=== PATIENT | female | born 1965 | race Caucasian/White ===

== ENCOUNTER 2019-04-04 17:47 | Emergency (ER) | payer OTHER ==
[2019-04-04 18:01] VITALS: TEMP 98.2
--- NOTE | 2019-04-04 18:55 | PDOC ---
History of Present Illness - General Chief Complaint: Weakness Stated Complaint: LEFT SIDE NUMBNESS Time Seen by Provider: 04/04/19 18:51 History Source: Patient Exam Limitations: No Limitations - History of Present Illness Initial Comments: Pt is a 54 yo F, with PMH of L breast lumpectomy (benign, 2014), who is presenting with complaints of LLE swelling and shooting pain from her LLE to her LUE since yesterday, associated with overall fatigue and frontal headache. Pt states starting yesterday ~5pm, she noticed swelling and heaviness in her L calf, followed by "shooting pain" from her L lateral calf up to the lateral portion of her L arm and neck. Pt took motrin at 7 pm last night with minimal relief. Today she felt overall fatigue and has been sleeping throughout the day. Pt states this pain is different from her typical migraine, which is usually relieved with Fiorecet. Pt denies any fevers/chills, vision changes, syncope, chest pain, palpitations, SOB, nausea/vomiting, abdominal pain, focal weakness, stool or urine incontinence, urinary symptoms, diarrhea/constipation, or leg swelling. Allergies: NKDA PCP: Dr. Norm Narvaez Social: Pt denies any cigarette, alcohol, or drug use. Pt denies any recent travel or sick contacts. Surgical: L lumpectomy, see above. Family: Father with CVA in 70s. 04/04/19 20:10 Past History - Travel Traveled outside of the country in the last 30 days: No Close contact w/someone who was outside of country & ill: No - Past Medical History Allergies/Adverse Reactions: Allergies Allergy/AdvReac Type Severity Reaction Status Date / Time No Known Allergies Allergy Verified 04/04/19 18:00 Home Medications: Ambulatory Orders Sumatriptan Succinate [Imitrex -] 50 mg PO ONCE 04/04/19 COPD: No - Surgical History Abdominal Surgery: Yes - Suicide/Smoking/Psychosocial Hx Smoking History: Never smoked Review of Systems - Review of Systems Able to Perform ROS?: Yes Is the patient limited Spanish proficient: No Constitutional: Yes: Malaise, Weight Stable. No: Chills, Diaphoresis, Fever, Loss of Appetite, Night Sweats, Weakness HEENTM: No: Eye Pain, Blurred Vision, Double Vision, Nose Congestion, Throat Pain, Throat Swelling, Difficulty Swallowing Respiratory: No: Cough, Orthopnea, Shortness of Breath Cardiac (ROS): No: Chest Pain, Edema, Irregular Heart Rate, Lightheadedness, Palpitations, Syncope, Chest Tightness ABD/GI: No: Constipated, Diarrhea, Nausea, Poor Appetite, Poor Fluid Intake, Vomiting, Abdominal cramping : No: Burning, Dysuria, Frequency, Pain, Urgency Musculoskeletal: Yes: See HPI, Muscle Pain. No: Back Pain, Joint Pain, Joint Swelling, Muscle Weakness, Neck Pain Integumentary: Yes: Other (mosquito bites b/l lower legs). No: Erythema, Rash Neurological: Yes: See HPI, Headache, Paresthesia. No: Numbness, Pre-Existing Deficit, Tingling, Weakness, Unsteady Gait, Ataxia, Dizziness Psychiatric: No: Sleep Pattern Change, Change in Appetite Endocrine: No: Increased Urine, Change in Weight Hematologic/Lymphatic: No: Anemia, Blood Clots, Easy Bleeding, Easy Bruising All Other Systems: Reviewed and Negative *Physical Exam - Vital Signs Last Vital Signs Temp Pulse Resp BP Pulse Ox 98.2 F 98 H 18 129/71 99 04/04/19 17:57 04/04/19 17:57 04/04/19 17:57 04/04/19 17:57 04/04/19 17:57 - Physical Exam Comments: Vitals stable, pt afebrile. Pt in NAD, overweight body habitus. Pt alert and oriented x3. 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 Decreased sensation of ulnar distribution of L hand, and laterl L lower leg through dorsum of L midfoot. No midline spinal tenderness, step-offs, or crepitus. Head normocephalic, atraumatic. Eyes PERRLA, EOMI. Oropharynx without erythema or exudates, no LAD b/l. No nasal congestion, hearing intact. Clear heart sounds, S1/S2, no JVD, b/l pedal edema, or heart murmur. Clear lung sounds, no respiratory distress, wheezes, crackles, or accessory muscle use. No significant swelling to any extremity, reproducible TTP over L calf. No abdominal or CVA tenderness to palpation, no rebound, no guarding. Abdomen soft, non-distended, and with normoactive bowel sounds. Multiple small bug bites (small ~0.5 cm erythematous patches) over b/l lower extremities. Skin otherwise without jaundice or rash. 04/04/19 19:39 04/04/19 19:55 ED Treatment Course - LABORATORY CBC & Chemistry Diagram: 04/04/19 20:10 04/04/19 20:10 Medical Decision Making - Medical Decision Making Pt was seen at bedside, also will be seen by attending Dr. Jain. Pt presenting with complaints of LLE swelling and shooting pain from her LLE to her LUE since yesterday, associated with overall fatigue and frontal headache. Pt states starting yesterday ~5pm, she noticed swelling and heaviness in her L calf, followed by "shooting pain" from her L lateral calf up to the lateral portion of her L arm and neck. Pt took motrin at 7 pm last night with minimal relief. Today she felt overall fatigue and has been sleeping throughout the day. Pt states this pain is different from her typical migraine, which is usually relieved with Fiorecet. Pt denies any fevers/chills, vision changes, syncope, chest pain, palpitations, SOB, nausea/vomiting, abdominal pain, focal weakness, stool or urine incontinence, urinary symptoms, diarrhea/constipation, or leg swelling. Considering atypical migraine vs CVA vs infectious (viral vs bacterial vs parasitic). No midline spinal tenderness, history of trauma, or immunocompromise. No spinal red flags (no fever, incontinence, focal weakness). Will work-up for infection, CT head/C-spine/L-spine to eval for bleed/ischemia/ herniations, electrolyte abnormalities. Pt has minimal risk factors for DVT (no estrogen use, recent surgery/travel/bedrest, no prior clots). Will obtain b/l LE duplex as pt has complaints of LLE swelling and "heaviness". Provided lidocaine patch, 1 g IV ofirmev, 25 mg IV benadryl, 10 mg IV reglan, and 1 L IV NS for improvement of headache and extremity pain. Will continue to reassess pt and monitor for symptomatic improvement. 04/04/19 19:[address] and US. 04/04/19 20:24 Duplex study shows no evidence of DVT.\\ CBC: WBC 15 -- no fever, potentially reactive, viral illness, pending CT scans. CMP: BUN 19, providing IVF for dehydration Trop <.[address] scans. 04/04/19 21:[address] Granda (neurology) who suggested f/u with him in the clinic pending results of CT scan, and gabapentin TID if pts symptoms not improved. He will follow the pt. ECG: NSR, LAD with LBBB (HR 84, OH 174, QRS 142, QTc 493). LBBB with no excessive discordance. No prior ECG for comparison. No chest pain, troponin negative. CT of head, C-spine, and L-spine showed no acute pathology. Considering normal lab results and imaging, pt can be discharged to home with follow-up. Pt advised to follow-up with PCP in 1-2 days and has been referred to neurology (Dr. Granda). Strict return precautions provided with pt understanding. 04/04/19 22:48 *DC/Admit/Observation/Transfer Diagnosis at time of Disposition: Distal paresthesia - Discharge Dispostion Disposition: HOME Condition at time of disposition: Improved Decision to Admit order: No - Referrals Referrals: Judson Granda MD [Staff Physician] - - Patient Instructions Printed Discharge Instructions: DI for Numbness/tingling, DI for Migraine Additional Instructions: You were seen in the ER today for sharp pains in your left arm and leg, with headache. The results of your labs and imaging today were normal. Please follow- up with your primary care doctor and Dr. Granda (Neurology) within 1-2 days to discuss your visit and make sure your symptoms have improved. Please return to the ER if you have any worsening pain, development of fevers or chills, loss of consciousness, inability to tolerate food or fluids, or any other concerns. - Post Discharge Activity
[2019-04-04] MEDS ORDERED: SODIUM CHLORIDE 1,000 ML IV STA (19:30)
[2019-04-04] MEDS ORDERED: ACETAMINOPHEN 1000 MG/100 ML VIAL (NON FORMULARY) IVPB ONE (19:30)
[2019-04-04] MEDS ORDERED: LIDOCAINE 5% TOPICAL PATCH TP ONE (19:30)
[2019-04-04] MEDS ORDERED: LIDOCAINE 5% TOPICAL PATCH ONE (19:40)
[2019-04-04] MEDS ORDERED: ACETAMINOPHEN INJECTION 100 ML IVPB ONE (19:40)
[2019-04-04] MEDS ORDERED: METOCLOPRAMIDE HCL INJECTION 10 MG/2 ML VIAL IVPUSH ONE (19:51)
[2019-04-04 20:18] LABS: BASO % 0.7 % (0-2.0); EOS % 0.6 % (0-4.5); HEMATOCRIT 44.1 % (32.4-45.2); HEMOGLOBIN 14.4 GM/dL (10.7-15.3); LYMPH % 26.1 % (8-40); MCH 27.7 pg (25.7-33.7); MCHC 32.8 g/dl (32.0-36.0); MEAN CELL VOLUME 84.6 fl (80-96); MEAN PLT VOLUME 8.3 fl (7.5-11.1); MONO % 8.1 % (3.8-10.2); NEUT % 64.5 % (42.8-82.8); PLATELET COUNT 292 K/MM3 (134-434); RBC 5.21 M/mm3 (3.60-5.2); RDW 14.3 % (11.6-15.6); WHITE BLOOD COUNT 15.1 K/mm3 (4.0-10.0)
--- NOTE | 2019-04-04 20:33 | PDOC ---
Documentation entered by Diane Rodriguez SCRIBE, acting as scribe for Rick Jain MD. Rick Jain MD: This documentation has been prepared by the Jennifer summers Nirvannie, SCRIBE, under my direction and personally reviewed by me in its entirety. I confirm that the documentation accurately reflects all work, treatment, procedures, and medical decision making performed by me. Attending Attestation - Resident Resident Name: BrandenLarisa - ED Attending Attestation I have performed the following: I have examined & evaluated the patient, The case was reviewed & discussed with the resident, I agree w/resident's findings & plan, Exceptions are as noted - HPI HPI: 04/04/19 19:57 The patient is a 54 year old female, with a significant past medical history of migraines, who presents to the emergency department with 1 day of headache and L sided paresthesias. As per patient, her symptoms started last night as LLE tingling that developed into a sharp shooting pain radiating from her L leg to her L arm. Pt also endorses frontal headache. She states this is different from her typical migraines. Denies thunderclap. Denies neck pain. Denies fevers/ chills. Denies CP/SOB. Endorses L lower back pain. Allergies: NKDA - Physicial Exam PE: 04/04/19 19:57 GENERAL: Awake, alert, and fully oriented, in no acute distress. HEAD: No signs of trauma EYES: PERRLA, EOMI, sclera anicteric, conjunctiva clear ENT: Auricles normal inspection, hearing grossly normal, nares patent, oropharynx clear without exudates. Moist mucosa NECK: Nontender, no stepoffs, Normal ROM, supple, no lymphadenopathy, JVD, or masses LUNGS: Breath sounds equal, clear to auscultation bilaterally. No wheezes, and no crackles HEART: Regular rate and rhythm, normal S1 and S2, no murmurs, rubs or gallops ABDOMEN: Soft, nontender, normoactive bowel sounds. No guarding, no rebound. No masses EXTREMITIES: Normal range of motion, no edema. No clubbing or cyanosis. No cords, erythema, or tenderness NEUROLOGICAL: Cranial nerves II through XII intact. Diminished sensation to L arm and L leg, normal sensation R side, 5/5 strength in all extremities, Normal speech, normal gait, normal cerebellar function SKIN: Warm, Dry, normal turgor, no rashes or lesions noted. - Medical Decision Making 04/04/19 20:52 54 F with headache, paresthesias to L arm and leg x 1 day. Pt with diminished sensation to LUE and LLE but no other neuro deficits. Suspect atypical migraine. Pt with no red flags for SAH/meningitis. No midline spinal tenderness to suggest cord compression/cauda equina. - Labs - CT head - IVF, tylenol, reglan - Discuss with neuro 04/04/19 22:54 Labs wnl CTs prelim negative Pt reassessed - now with complete resolution of GONZALEZ and paresthesias Neuro exam at this time completely normal Discussed with Dr. Granda, who agrees with plan to DC home with outpt f/u
[2019-04-04 20:44] LABS: INR 0.97 (0.83-1.09); PROTHROMBIN TIME (PATIENT) 11.5 SEC (9.7-13.0)
[2019-04-04 20:47] LABS: ACTIVATED PTT 31.4 SECONDS (25.2-36.5)
[2019-04-04 21:02] LABS: ALBUMIN 4.1 g/dl (3.4-5.0); ALK PHOS 48 U/L (45-117); ANION GAP 6 MMOL/L (8-16); BILIRUBIN,TOTAL 0.3 mg/dL (0.2-1); BLOOD UREA NITROGEN 19.4 mg/dL (7-18); CALCIUM 9.4 mg/dL (8.5-10.1); CHLORIDE 104 mmol/L (98-107); CO2 27 mmol/L (21-32); CREATININE 0.8 mg/dL (0.55-1.3); GLUCOSE,RANDOM 83 mg/dL (74-106); POTASSIUM 4.1 mmol/L (3.5-5.1); SGOT/AST 22 U/L (15-37); SGPT/ALT 27 U/L (13-61); SODIUM 137 mmol/L (136-145); TOT PROT 7.5 g/dl (6.4-8.2)
[2019-04-04] MEDS ORDERED: METOCLOPRAMIDE HCL INJECTION 10 MG/2 ML VIAL ONE (21:03)
[2019-04-04] MEDS ORDERED: LIDOCAINE PATCH REMOVAL MC SCH (22:00)
[2019-04-04] MEDS ORDERED: HEPARIN NA (PORCINE) 5,000 UNITS/ML 1ML VIAL ONE (23:03)
[2019-04-04 23:19] VITALS: BP 129/84; PULSE 85
--- NOTE | 2019-04-05 11:17 | EKG ---
Test Reason : Blood Pressure : / mmHG Vent. Rate : 084 BPM Atrial Rate : 084 BPM P-R Int : 174 ms QRS Dur : 142 ms QT Int : 418 ms P-R-T Axes : 047 -49 096 degrees QTc Int : 493 ms NORMAL SINUS RHYTHM LEFT AXIS DEVIATION LEFT BUNDLE BRANCH BLOCK ABNORMAL ECG NO PREVIOUS ECGS AVAILABLE Confirmed by ISAC BROWN MD ([id number]) on 04/05/2019 11:16:32 AM Referred By: Confirmed By:ISAC BROWN MD
== END 2019-04-04 23:22 | disposition home or self-care (01) ==
LOC: JER 17:47
PROC: 3E033GC Introduction of Other Therapeutic Substance into Peripheral Vein, Percutaneous Approach (ICD-10-PCS; principal; 2019-04-04)
PROC: 3E0337Z Introduction of Electrolytic and Water Balance Substance into Peripheral Vein, Percutaneous Approach (ICD-10-PCS; 2019-04-04)
PROC: 3E033NZ Introduction of Analgesics, Hypnotics, Sedatives into Peripheral Vein, Percutaneous Approach (ICD-10-PCS; 2019-04-04)
DX: R20.2 Paresthesia of skin (principal)
CPT/HCPCS: 36415; 70450-TC; 72125-TC; 72131-TC; 80053; 82550; 83735; 84484; 85025; 85610; 85730; 93005; 93010; 93970-TC; 99283-25; J0131; J7030